=== PATIENT | female | born 1970 | race Two or more races ===

== ENCOUNTER 2018-08-09 10:12 | Day surgery (SDC) | payer OTHER | END 2018-08-09 16:50 | disposition home or self-care (01) | LOC: AMB-ENDOS 10:12 | DX: K64.1 Second degree hemorrhoids (principal); Z12.11 Encounter for screening for malignant neoplasm of colon ==

== ENCOUNTER → 2019-06-18 09:28 | Outpatient (CLI) | payer OTHER | END | disposition home or self-care (01) | LOC: LAB 09:28 | DX: E04.8 Other specified nontoxic goiter (principal); I10 Essential (primary) hypertension; E78.00 Pure hypercholesterolemia, unspecified; E78.1 Pure hyperglyceridemia ==